=== PATIENT | male | born 1990 | race African-American/Black ===

== ENCOUNTER 2018-05-22 10:26 | Emergency (ER) | payer SELFPAY ==
[~2018-05-22] VITALS: Ht 172.7 cm; Wt 77.0 kg
[~2018-05-22 10:26] MED LIST: CEPHALEXIN500 M1 PO; FLEXERIL5 MG PO; NAPROSYN375 MG PO; NAPROSYN500 MG OR; NO MEDS; PERCOCET 5/325M1 TAB PO; ULTRAM50 M1 PO; ULTRAM50 MG OR; ZOFRAN ODT4 MG OR
[2018-05-22] MEDS ORDERED: TRAMADOL HYDROC50 MG PO (10:54)
[2018-05-22] MEDS ORDERED: MOTRIN800 MG PO (10:54)
[2018-05-22 11:50] VITALS: BP 120/68
== END 2018-05-22 11:50 | disposition home or self-care (01) | DRG 605 ==
LOC: ED 10:26
DX: S20.212A Contusion of left front wall of thorax, initial encounter (principal); S20.211A Contusion of right front wall of thorax, initial encounter; F17.210 Nicotine dependence, cigarettes, uncomplicated; W20.8XXA Other cause of strike by thrown, projected or falling object, initial encounter; Y93.B3 Activity, free weights; Y92.39 Other specified sports and athletic area as the place of occurrence of the external cause

== ENCOUNTER 2019-10-10 | Emergency (ER) | payer OTHER ==
[~2019-10-10] MED LIST changes: +MOTRIN800 MG PO; +TRAMADOL HYDROC50 MG PO
[2019-10-10] MEDS ORDERED: BACTRIM DS1 TAB PO ×2 (22:21)
[2019-10-10] MEDS ORDERED: HYDROCO/APAP1 T11 PO (22:21)
== END 2019-10-10 22:50 | disposition home or self-care (01) | DRG 603 ==
PROC: 0H98XZZ Drainage of Buttock Skin, External Approach (ICD-10-PCS; principal; 2019-10-10)
DX: L02.31 Cutaneous abscess of buttock (principal); F17.210 Nicotine dependence, cigarettes, uncomplicated

== ENCOUNTER 2019-10-12 | Emergency (ER) | payer OTHER ==
[~2019-10-12] MED LIST changes: +BACTRIM DS1 TAB PO; +HYDROCO/APAP1 T11 PO
== END 2019-10-12 20:08 | disposition home or self-care (01) | DRG 951 ==
DX: Z48.01 Encounter for change or removal of surgical wound dressing (principal); F17.210 Nicotine dependence, cigarettes, uncomplicated

== ENCOUNTER 2020-02-22 01:29 | Emergency (ER) | payer SELFPAY ==
[~2020-02-22] VITALS: Ht 172.7 cm; Wt 75.0 kg
[2020-02-22 02:05] LABS: HEMATOCRIT 47.4 % (39.0-50.0); HEMOGLOBIN 16.5 g/dl (14.0-18.0); IMMATURE GRANULOCYTES 0.8 % (0.0-5.0); MEAN CELL VOLUME 92.2 fL CALC (80.0-100.0); MEAN CORPUSCULAR HGB 32.1 pG CALC (26.0-32.0); MEAN CORPUSCULAR HGB CONC 34.8 g/dL CAL (32.0-36.0); NEUT# 15.21 thou/uL (1.82-7.42); RED BLOOD COUNT 5.14 mill/uL (4.70-6.10); RED CELL DISTRI WIDTH 14.5 % (11.5-15.5)
[2020-02-22 02:18] LABS: BILIRUBIN, TOTAL 0.7 mg/dL (0.0-1.4); CREATININE 2.9 mg/dL (0.7-1.3); MAGNESIUM 2.8 mg/dL (1.6-2.3); POTASSIUM 4.7 mmol/l (3.5-5.1)
[2020-02-22 02:26] LABS: TOTAL PROTEIN 11.6 g/dL (6.3-8.2)
[2020-02-22 04:38] LABS: URINE BLOOD DIPSTICK SMALL (NEGATIVE); URINE COLOR YELLOW; URINE GLUCOSE - DIPSTICK NEGATIVE (NEGATIVE); URINE KETONE TRACE mg/dL (NEGATIVE); URINE LEUK ESTERASE NEGATIVE (NEGATIVE); URINE NITRITE - DIPSTICK NEGATIVE (Negative); URINE PH 5.5 (4.5-8.0); URINE PROTEIN - DIPSTICK 30 mg/dL (NEG-TRACE); URINE SPECIFIC GRAVITY >=1.030; URINE UROBILINOGEN - DIPSTICK 0.2 E.U./dL (0.2)
[2020-02-22 04:40] LABS: URINE BILIRUBIN - DIPSTICK SMALL (NEGATIVE)
[2020-02-22 04:41] LABS: URINE EPITHELIAL CELLS FEW EPI/hpf (0-FEW); URINE MUCUS FEW hpf (NONE-FEW); URINE RBC 0-2 RBC/hpf (0-5)
[2020-02-22 05:14] LABS: ALBUMIN 4.8 g/dL (3.2-5.0); BILIRUBIN, TOTAL 0.5 mg/dL (0.0-1.4); POTASSIUM 4.7 mmol/l (3.5-5.1)
[2020-02-22 05:18] LABS: CREATININE 1.7 mg/dL (0.7-1.3); TOTAL PROTEIN 8.2 g/dL (6.3-8.2)
[2020-02-22 06:23] VITALS: BP 111/67
== END 2020-02-22 06:47 | disposition home or self-care (01) | DRG 558 ==
LOC: ED 01:29
DX: M62.82 Rhabdomyolysis (principal); N17.9 Acute kidney failure, unspecified; E87.2 Acidosis; E86.0 Dehydration; F17.200 Nicotine dependence, unspecified, uncomplicated; X30.XXXA Exposure to excessive natural heat, initial encounter; Y93.89 Activity, other specified

== ENCOUNTER 2020-04-25 16:01 | Emergency (ER) | payer OTHER ==
[~2020-04-25] VITALS: Ht 172.7 cm; Wt 77.0 kg
[2020-04-25] MEDS ORDERED: CYCLOBENZAPR5 MG PO (17:47)
[2020-04-25] MEDS ORDERED: MOTRIN400 MG PO (17:47)
[2020-04-25 18:50] VITALS: BP 112/61
== END 2020-04-25 18:50 | disposition home or self-care (01) | DRG 552 ==
LOC: ED 16:01
DX: M54.6 Pain in thoracic spine (principal); M54.5 Low back pain; M25.512 Pain in left shoulder; F17.210 Nicotine dependence, cigarettes, uncomplicated; V89.2XXA Person injured in unspecified motor-vehicle accident, traffic, initial encounter

== ENCOUNTER 2020-10-27 10:38 | Emergency (ER) | payer SELFPAY ==
[~2020-10-27] VITALS: Ht 172.7 cm; Wt 73.0 kg
[~2020-10-27 10:38] MED LIST changes: +CYCLOBENZAPR5 MG PO; +MOTRIN400 MG PO
[2020-10-27 11:47] LABS: HEMATOCRIT 41.5 % (39.0-50.0); HEMOGLOBIN 13.9 g/dl (14.0-18.0); IMMATURE GRANULOCYTES 0.3 % (0.0-5.0); MEAN CELL VOLUME 96.3 fL CALC (80.0-100.0); MEAN CORPUSCULAR HGB 32.3 pG CALC (26.0-32.0); MEAN CORPUSCULAR HGB CONC 33.5 g/dL CAL (32.0-36.0); NEUT# 8.47 thou/uL (1.82-7.42); RED BLOOD COUNT 4.31 mill/uL (4.70-6.10); RED CELL DISTRI WIDTH 14.3 % (11.5-15.5)
[2020-10-27 12:15] LABS: ALBUMIN 4.5 g/dL (3.2-5.0); ALKALINE PHOSPHATASE 69 u/l (38-126); ANION GAP 13 (6-22 (CALC)); BILIRUBIN, TOTAL 0.5 mg/dL (0.0-1.4); BUN 10 mg/dL (9-20); BUN/CREATININE RATIO 10 (12-20 (CALC)); CARBON DIOXIDE 25 mmol/l (22-30); CHLORIDE 103 mmol/l (95-108); GFR > 60 ML/MIN (>=60 (CALC)); GFR FOR AFR.AMER. > 60 ML/MIN (>=60 (CALC)); SGOT/AST 23 u/l (17-59); SODIUM 137 mmol/l (137-146)
[2020-10-27 13:45] LABS: URINE BILIRUBIN - DIPSTICK NEGATIVE (NEGATIVE); URINE BLOOD DIPSTICK TRACE-INTACT (NEGATIVE); URINE COLOR YELLOW; URINE GLUCOSE - DIPSTICK NEGATIVE (NEGATIVE); URINE KETONE NEGATIVE (NEGATIVE); URINE LEUK ESTERASE NEGATIVE (NEGATIVE); URINE NITRITE - DIPSTICK NEGATIVE (Negative); URINE PROTEIN - DIPSTICK NEGATIVE (NEG-TRACE); URINE UROBILINOGEN - DIPSTICK 0.2 E.U./dL (0.2)
[2020-10-27] MEDS ORDERED: BACTRIM DS1 TAB PO (15:08)
[2020-10-27 16:26] VITALS: BP 108/57
== END 2020-10-27 16:26 | disposition home or self-care (01) | DRG 603 ==
LOC: ED 10:38
PROVIDERS: Student in an Organized Health Care Education/Training Program
PROC: 0H98XZZ Drainage of Buttock Skin, External Approach (ICD-10-PCS; principal; 2020-10-27)
DX: L02.31 Cutaneous abscess of buttock (principal); F17.200 Nicotine dependence, unspecified, uncomplicated; B95.61 Methicillin susceptible Staphylococcus aureus infection as the cause of diseases classified elsewhere; Z20.822 Contact with and (suspected) exposure to COVID-19
CPT/HCPCS: Q9967

== ENCOUNTER 2020-10-29 13:01 | Emergency (ER) | payer SELFPAY ==
[~2020-10-29] VITALS: Ht 172.7 cm; Wt 73.0 kg
[2020-10-29 14:16] VITALS: BP 141/74
== END 2020-10-29 14:16 | disposition home or self-care (01) | DRG 951 ==
LOC: ED 13:01
DX: Z48.01 Encounter for change or removal of surgical wound dressing (principal); F17.210 Nicotine dependence, cigarettes, uncomplicated

== ENCOUNTER 2020-10-31 17:06 | Emergency (ER) | payer SELFPAY ==
[~2020-10-31] VITALS: Ht 172.7 cm; Wt 78.6 kg
[2020-10-31 17:57] VITALS: BP 114/69
== END 2020-10-31 18:05 | disposition home or self-care (01) | DRG 951 ==
LOC: ED 17:06
DX: Z48.01 Encounter for change or removal of surgical wound dressing (principal); F17.200 Nicotine dependence, unspecified, uncomplicated